=== PATIENT | female | born 1955 | race Caucasian/White ===

== ENCOUNTER 2016-09-13 11:12 | Outpatient (CLI) | payer OTHER ==
[~2016-09-13 11:12] MED LIST: B-121000 MCG PO; CALCIUM PLUS D PO; LOSARTAN POTAS100 MG PO; METOPROLOL TART25 MG PO; OMEPRAZOLE20 M1 PO; PRAVASTATIN SOD20 MG PO; PROBIOTI1 PO
--- NOTE | 2016-09-13 13:47 | DIAGNOSTIC IMAGING REPORT ---
PROCEDURE: MG UNILAT SCREEN-RIGHT W/CAD INDICATION: Right screening. History of left breast carcinoma (mastectomy). Family history breast carcinoma (sister). TECHNIQUE: CC and MLO digital views. COMPARISON: Compared to 09/01 at 16, 08/23/2014, and 08/21/2013. FINDINGS: Computer-aided detection applied. Mildly to moderately dense. No change. IMPRESSION: 1. Negative right mammogram. 2. Preliminary result provided to the patient (DM, RT negative). RESULT CODE: 1- Negative. A. A negative report should not delay biopsy if a dominant or clinically suspicious mass is present. 10-15% of cancers are not identified by x-ray. B. A negative report may reinforce clinical impression. C. Adenosis and dense breasts may obscure an underlying neoplasm. D. False positive reports average 6-10%. E.. A yearly screening mammogram is recommended. A reminder letter will be scheduled.
== END 2016-09-13 23:00 ==
LOC: MAM SRH 11:12
DX: Z12.31 Encounter for screening mammogram for malignant neoplasm of breast (principal); Z85.3 Personal history of malignant neoplasm of breast; Z80.3 Family history of malignant neoplasm of breast